=== PATIENT | female | born 1970 | race Caucasian/White ===

== ENCOUNTER 2022-04-03 10:03 | Emergency (ER) | payer MEDICARE, OTHER | END 2022-04-03 11:38 | disposition home or self-care (01) | LOC: JD.ED 10:03 | DX: L84 Corns and callosities (principal) | CPT/HCPCS: 99283 ==

== ENCOUNTER 2022-11-07 10:48 | Emergency (ER) | payer MEDICARE, OTHER ==
[2022-11-07] MEDS ORDERED: Ondansetron 4 MG Tab.DIS PO ONE (11:50)
[2022-11-07] MEDS ORDERED: traMADol 50 MG Tab PO ONE (12:55)
== END 2022-11-07 13:05 | disposition home or self-care (01) ==
LOC: JD.ED 10:48
DX: M25.531 Pain in right wrist (principal); Z86.16 Personal history of COVID-19; Z88.6 Allergy status to analgesic agent; Z88.5 Allergy status to narcotic agent; Z88.8 Allergy status to other drugs, medicaments and biological substances; Z79.02 Long term (current) use of antithrombotics/antiplatelets; Z79.899 Other long term (current) drug therapy
CPT/HCPCS: 29125; 73110; 99283; A9270